=== PATIENT | female | born 1995 | race Caucasian/White ===

== ENCOUNTER 2019-04-07 21:42 | Emergency (ER) | payer MEDICAID ==
[~2019-04-07] VITALS: Ht 154.9 cm; Wt 77.1 kg
[2019-04-07 21:47] VITALS: BP 124/80
--- NOTE | 2019-04-08 00:15 | NUR ---
PT AMBULATED TO BED 5.
--- NOTE | 2019-04-08 00:25 | NUR ---
24 Y/O F PRESENTS TO ED WITH C/O OVARIAN PAIN X 1 MONTH. AAOX4. PT HAS HX OF OVARIAN CYST. PER PT "[place] THE PAIN. MY PERIOD IS ALSO 27 DAYS LATE." 5/10 INTERMINTENT SHARP, NON-RADIATING PAIN. PT DENIES HEMATURIA AND BACK PAIN. MILD TENDERNESS NOTED TO RLQ. BOWEL SOUNDS PRESENT [id number]. FAMILY AT BEDSIDE. MONITOR ATTACHED. WILL CONTINUE TO MONITOR.
--- NOTE | 2019-04-08 01:00 | NUR ---
PT HAD POSTIVE PREGANCY TEST. DR. JAY NOTIFIED
--- NOTE | 2019-04-08 01:30 | NUR ---
PT MOVED TO BED 09. RECEIVED REPORT FROM JOSE CARROLL. TRANSFER OF CARE AT THIS TIME.
[2019-04-08 02:15] LABS: APPEARANCE,URINE HAZY (CLEAR); BILIRUBIN,URINE NEGATIVE (NEGATIVE); BLOOD, URINE 2+ (NEGATIVE); COLOR,URINE YELLOW (YELLOW); LEUKOCYTE ESTERASE ,URINE 2+ (NEGATIVE); NITRITE, URINE NEGATIVE (NEGATIVE); UGLUCOSE NEGATIVE (NEGATIVE)
[2019-04-08 02:32] LABS: WBC,URINE 20-60 /HPF (0-5)
[2019-04-08 02:37] LABS: BASOPHILS # (AUTO) 0.1 K/uL (0.00-0.22); BASOPHILS % (AUTO) 0.5 % (0.0-2.0); EOSINOPHILS # (AUTO) 0.3 K/uL (0-0.4); EOSINOPHILS % (AUTO) 2.7 % (0.0-4.0); HEMATOCRIT 37.9 % (36-48); HEMOGLOBIN 12.4 g/dL (12.0-16.0); LYMPHOCYTES # (AUTO) 3.5 K/uL (2.5-16.5); LYMPHOCYTES % (AUTO) 33.6 % (20.5-51.1); MEAN CORPUSCULAR HEMOGLOBIN 27 pg (27-31); MEAN CORPUSCULAR HGB CONC 33 g/dL (33-37); MEAN CORPUSCULAR VOLUME 83.5 fL (80-94); MONOCYTES # (AUTO) 0.4 K/uL (0.8-1.0); MONOCYTES % (AUTO) 4.1 % (1.7-9.3); NEUTROPHILS # (AUTO) 6.1 K/uL (1.8-7.7); NEUTROPHILS % (AUTO) 59.1 % (42.2-75.2); PLATELET COUNT (AUTO) 317 K/uL (140-450); RED BLOOD CELL COUNT(AUTO) 4.54 MIL/uL (4.20-5.40); RED CELL DISTRIBUTION WIDTH 14.2 % (11.6-13.7); WHITE BLOOD COUNT (AUTO) 10.3 K/uL (4.8-10.8)
--- NOTE | 2019-04-08 02:38 | NUR ---
PT RESTING COMFORTABLY IN BED WITH VSS. PARTNER AT BEDSIDE. NO COMPLAINTS/CONCERNS AT THIS TIME. AWAITING US RESULTS. SKIN PINK, WARM, DRY. BREATHING EVEN, UNLABORED.
[2019-04-08 02:49] LABS: ALBUMIN 3.8 g/dL (3.4-5.0); ANION GAP 14.4 (8-16); CARBON DIOXIDE 22.5 mmol/L (21-32); CREATININE 0.5 mg/dL (0.6-1.3); POTASSIUM 3.9 mmol/L (3.5-5.1); TOTAL BILIRUBIN 0.3 mg/dL (0.0-1.0)
--- NOTE | 2019-04-08 03:52 | NUR ---
PT RESTING COMFORTABLY IN BED WITH VSS. PARTNER AT BEDSIDE. NO COMPLAINTS/CONCERNS AT THIS TIME. AWAITING US RESULTS. SKIN PINK, WARM, DRY. BREATHING EVEN, UNLABORED.
--- NOTE | 2019-04-08 04:30 | NUR ---
PT RESTING COMFORTABLY IN BED WITH VSS. PARTNER AT BEDSIDE. NO COMPLAINTS/CONCERNS AT THIS TIME. AWAITING US RESULTS. SKIN PINK, WARM, DRY. BREATHING EVEN, UNLABORED.
[2019-04-08 05:48] VITALS: BP 102/63
--- NOTE | 2019-04-08 05:48 | NUR ---
Patient discharged with v/s stable. Written and verbal after care instructions given and explained. Patient alert, oriented and verbalized understanding of instructions. Carried with steady gait. All questions addressed prior to discharge. ID band removed. Patient advised to follow up with PMD. Rx of Keflex given. Patient educated on indication of medication including possible reaction and side effects. Opportunity to ask questions provided and answered.
== END 2019-04-08 05:48 | disposition home or self-care (01) ==
LOC: MED 21:42
DX: O23.41 Unspecified infection of urinary tract in pregnancy, first trimester (principal); F17.200 Nicotine dependence, unspecified, uncomplicated; Z3A.01 Less than 8 weeks gestation of pregnancy; Z90.49 Acquired absence of other specified parts of digestive tract
CPT/HCPCS: 36415; 76817; 80053; 81001; 81025; 83690; 84702; 85025; 86901; 87086; 87186; 99284; Q0092